=== PATIENT | female | born 1985 | race Caucasian/White ===

== ENCOUNTER 2021-02-12 17:45 | Inpatient (IN) ==
[2021-02-12 18:30] LABS: Bacteria,Urine Occasional /HPF (Few); Bilirubin,Urine Negative (Negative); Blood, Urine Negative (Negative); Glucose,Urine (UA) Negative (Negative); Ketones,Urine Negative (Negative); Mucus,Urine Occasional /LPF (Occasional); Nitrite,Urine Negative (Negative); Protein,Urine Negative; RBC,Urine 3 /HPF (0-4); Squamous Epithelial Cell,Urine Moderate /HPF (0-10); Urine Appearance Slightly Hazy (Clear); Urine Color Yellow (Yellow); Urine Specific Gravity 1.023 (1.001-1.035)
[2021-02-12] MEDS ORDERED: LACTATED RINGERS 1,000 ML IV SCH (20:30)
[2021-02-12] MEDS: ONDANSETRON 4 MG/2 ML VIAL IV PRN (21:01)
[2021-02-12] MEDS: MEPERIDINE 50 MG/1 ML VIAL IV PRN ×2 (21:02→23:38)
[2021-02-12] MEDS ORDERED: ONDANSETRON 4 MG/2 ML VIAL IV ONE (23:52)
[2021-02-12] MEDS ORDERED: FAMOTIDINE 20 MG/2 ML VIAL IV ONE (23:52)
[2021-02-12] MEDS ORDERED: hydrOXYzine HCL 25 MG/1 ML VIAL IM PRN (23:52)
[2021-02-12] MEDS ORDERED: diphenhydrAMINE 50 MG/1 ML VIAL IV PRN ×2 (23:52)
[2021-02-12] MEDS ORDERED: PROMETHAZINE 25 MG/1 ML VIAL IM ONE (23:52)
[2021-02-12] MEDS ORDERED: ePHEDrine 50 MG/ML VIAL IV PRN (23:52)
[2021-02-12] MEDS ORDERED: LACTATED RINGERS 1,000 ML IV ONE (23:52)
[2021-02-12] MEDS ORDERED: CITRIC ACID/SODIUM CITRATE 30 ML UDCUP PO ONE (23:52)
[2021-02-12] MEDS ORDERED: NALOXONE 0.4 MG/ML VIAL IV PRN (23:52)
[2021-02-13 00:16] LABS: Basophils % 0.3 % (0.0-0.8); Eosinophils % 0.2 % (0.00-10.9); Hematocrit 32.3 VOL% (35.7-47.0); Hemoglobin 10.6 GM/DL (12.0-16.0); Immature Granulocytes % 1.3 %; Immature Granulocytes Absolute 0.21 #; Lymphocytes # 3.2 10*3/uL (1.4-4.0); Lymphocytes % 19.8 % (21.3-54.2); Mean Corpuscular HGB Conc 32.8 GM/DL (32-36); Mean Corpuscular Volume 98.2 FL (87-102); Mean Platelet Volume 11.4 FL (9.6-12.0); Monocytes % 7.7 % (1.7-12.7); Neutrophils % 70.7 % (38.7-73.9); Platelet Count 264 T/CUMM (130-400); Red Blood Count 3.29 MC/CUMM (3.8-5.5); Red Cell Distribution Width 13.2 % (9.3-17.3)
[2021-02-13 00:48] LABS: Alanine Aminotransferase 12 U/L (13-56); Albumin 2.5 G/DL (3.4-5.0); Alkaline Phosphatase 105 U/L (45-117); Aspartate Amino Transferase 14 U/L (0-37); Bilirubin,Total < 0.39 MG/DL (0.2-1.0); Blood Urea Nitrogen 11 MG/DL (7-18); Calcium 9.8 MG/DL (8.5-10.1); Carbon Dioxide 21 MMOL/L (21-32); Estimated Glom Filtration Rate 130 ML/MIN; Glucose 103 MG/DL (74-106); Osmolality,Calculated 268.1 MOS/KG (273-304); Potassium 3.8 MMOL/L (3.5-5.1); Sodium 135 MMOL/L (136-145); Total Protein 6.5 G/DL (6.4-8.2); Uric Acid 4.7 MG/DL (2.6-6.0)
[2021-02-13] MEDS: LACTATED RINGERS 1,000 ML IV SCH ×3 (00:59→17:13)
[2021-02-13] MEDS: fentaNYL 2 MCG/ROPIV 0.2% EPID 100 ML EPIDURAL SCH ×2 (01:01→10:06)
[2021-02-13] MEDS ORDERED: ACETAMINOPHEN 500 MG TABLET PO PRN (02:13)
[2021-02-13] MEDS: MEPERIDINE 50 MG/1 ML VIAL IV PRN ×2 (02:19→14:44)
[2021-02-13] MEDS: ONDANSETRON 4 MG/2 ML VIAL IV PRN (02:32)
[2021-02-13 04:47] LABS: Bilirubin,Urine Negative (Negative); Blood, Urine Negative (Negative); Glucose,Urine (UA) Negative (Negative); Ketones,Urine 5 mg/dL (Negative); Mucus,Urine Many /LPF (Occasional); Nitrite,Urine Negative (Negative); Protein,Urine 100 MG/DL; RBC,Urine <1 /HPF (0-4); Squamous Epithelial Cell,Urine Occasional /HPF (0-10); Urine Appearance CLEAR (Clear); Urine Color Amber (Yellow); Urine Specific Gravity 1.032 (1.001-1.035)
[2021-02-13 04:56] LABS: Rubella Antibody IgG Result Reactive (NonReactive)
[2021-02-13 05:02] LABS: Hepatitis B Surface Ag Quant < 0.10 Index; Hepatitis B Surface Ag Result Non-Reactive (NonReactive)
[2021-02-13 05:15] LABS: HIV Antigen/Antibody Result Nonreactive (Nonreactive)
[2021-02-13] MEDS ORDERED: PROMETHAZINE 25 MG/1 ML VIAL ONE (06:38)
[2021-02-13] MEDS ORDERED: OXYTOCIN/LR 20 UNIT/1,000 ML BAG IV SCH (08:00)
[2021-02-13] MEDS ORDERED: miSOPROStoL 200 MCG TABLET ONE (13:48)
[2021-02-13] MEDS ORDERED: METHYLERGONOVINE 0.2 MG/1 ML AMP ONE (13:49)
[2021-02-13] MEDS ORDERED: CARBOPROST TROMETHAMINE 250 MCG/ML AMP IM ONE (13:49)
[2021-02-13] MEDS ORDERED: LIDOCAINE MPF 2% /EPI 20 ML VIAL ONE (15:51)
[2021-02-13] MEDS ORDERED: fentaNYL 100 MCG/2 ML VIAL ONE (15:51)
[2021-02-13] MEDS ORDERED: OXYTOCIN/LR 30 UNIT/1,000 ML BAG IV ONE (17:29)
[2021-02-13 17:34] LABS: Cord Arterial Blood HCO3 23.9 MMOL/L
[2021-02-13 17:37] LABS: Cord Venous Blood HCO3 22.1 MMOL/L; Cord Venous Blood PCO2 41.8 MMHG; Cord Venous Blood PO2 27.3 MMHG
[2021-02-13] MEDS ORDERED: MEASLES/MUMPS/RUBELLA VACCINE 0.5 ML VIAL SUBCUT ONE (17:40)
[2021-02-13] MEDS ORDERED: RHO(D) IMMUNE GLOBULIN 300 MCG SYRINGE IM ONE (17:40)
[2021-02-13] MEDS ORDERED: DIPH/TET/ACEL PERT BOOSTER VACCINE 0.5 ML VIAL IM ONE (17:40)
[2021-02-13] MEDS ORDERED: ACETAMINOPHEN 325 MG TABLET PO PRN (17:40)
[2021-02-13] MEDS ORDERED: WITCH HAZEL PADS 100/JAR TOP PRN (17:40)
[2021-02-13] MEDS ORDERED: oxyCODONE/ACETAMINOPHEN 5-325 MG TABLET PO PRN ×2 (17:40)
[2021-02-13] MEDS ORDERED: HYDROCORTISONE 2.5% RECTAL CREAM 30 GM TUBE TOP PRN (17:40)
[2021-02-13] MEDS ORDERED: IBUPROFEN 800 MG TABLET PO PRN (17:40)
[2021-02-13] MEDS ORDERED: OXYTOCIN/LR 20 UNIT/1,000 ML BAG IV ONE (17:40)
[2021-02-13] MEDS ORDERED: ONDANSETRON 4 MG/2 ML VIAL IV PRN (17:40)
[2021-02-13] MEDS ORDERED: LANOLIN 50% CREAM 0.3 OZ TUBE TOP PRN (17:40)
[2021-02-13] MEDS ORDERED: BISACODYL 10 MG SUPP RECTAL PRN (17:40)
[2021-02-13] MEDS ORDERED: BENZOCAINE 20%/MENTHOL 0.5% SPRAY 56 GM CAN TOP PRN (17:40)
[2021-02-13] MEDS: BUTALBITAL/ACETAMIN/CAFFEINE 50-325-40 MG TABLET PO PRN (19:23)
[2021-02-13] MEDS: DOCUSATE SODIUM 100 MG CAPSULE PO SCH (21:25)
[2021-02-14 07:03] LABS: Basophils % 0.2 % (0.0-0.8); Eosinophils # 0.1 10*3/uL (0.0-0.87); Eosinophils % 0.4 % (0.00-10.9); Hematocrit 31.7 VOL% (35.7-47.0); Hemoglobin 10.1 GM/DL (12.0-16.0); Immature Granulocytes % 1.1 %; Immature Granulocytes Absolute 0.19 #; Lymphocytes # 2.5 10*3/uL (1.4-4.0); Lymphocytes % 14.5 % (21.3-54.2); Mean Corpuscular HGB Conc 31.9 GM/DL (32-36); Mean Corpuscular Volume 99.4 FL (87-102); Mean Platelet Volume 11.2 FL (9.6-12.0); Monocytes % 6.1 % (1.7-12.7); Neutrophils % 77.7 % (38.7-73.9); Platelet Count 237 T/CUMM (130-400); Red Blood Count 3.19 MC/CUMM (3.8-5.5); Red Cell Distribution Width 13.3 % (9.3-17.3); White Blood Count 16.9 T/CUMM (4-12)
[2021-02-14] MEDS: BUTALBITAL/ACETAMIN/CAFFEINE 50-325-40 MG TABLET PO PRN ×3 (07:21→14:55)
[2021-02-14] MEDS: DOCUSATE SODIUM 100 MG CAPSULE PO SCH ×2 (09:40→20:53)
[2021-02-15 09:26] VITALS: BP 93/55
== END 2021-02-15 12:05 | disposition home or self-care (01) | DRG 807 ==
LOC: N.LDOUT 17:45 → N.LD 17:48 → N.OB 02-14 07:10
PROVIDERS: ADMIT Obstetrics & Gynecology; ATTEND Obstetrics & Gynecology